=== PATIENT | male | born 1960 | race Caucasian/White ===

== ENCOUNTER → 2018-12-10 | Outpatient (CLI) | payer OTHER ==
[~2018-12-10] MED LIST: ACYC800T PO; ALBU18HF INHALATION; ALLO300T2 PO; AMLO5TAB4 PO; ATOR40TA68 PO; BECL10.62 IH; CARV6.2579 PO; COLC0.6T6 PO; CYCL10TA7 PO; DONE5TAB7 PO; GABA300C16 PO; IOHEXOL 100 ML ONE; METF500T24 PO; METOPROLOL 5 MG INJ ONE; NITROGLYCERIN AEROSOL (4.9 GM) ONE; OMEP20CA16 PO; SOD CHLORIDE 0.9% 100 ML ONE; TAMS0.4C2 PO; TRA100 PO; VENL75CA89 PO
== END | disposition home or self-care (01) ==
LOC: C/S 09:55
PROVIDERS: ATTEND Internal Medicine
DX: R07.9 Chest pain, unspecified (principal)
CPT/HCPCS: 75571; 75574; Q9967; Z7610